=== PATIENT | male | born 1985 | race African-American/Black ===

== ENCOUNTER 2018-11-09 13:07 | Emergency (ER) | payer SELFPAY ==
[~2018-11-09] VITALS: Ht 165.1 cm; Wt 72.6 kg
[2018-11-09] MEDS ORDERED: UNOBMED (13:09)
[2018-11-09] MEDS ORDERED: Thiamine HCl 100 MG in D5W 55 ML IV ONE (13:15)
[2018-11-09] MEDS ORDERED: LR 1000ml 1,000 ML IV SCH ×2 (13:15)
--- NOTE | 2018-11-09 13:16 | Emergency Room Report ---
History of Present Illness General Chief Complaint: Alcohol Intoxication Source: Patient, EMS Present Illness HPI 33-year-old male was found stumbling outside his rehab, patient states he drank multiple shots of alcohol, he is never had any withdrawal seizures, patient is currently intoxicated, worsened by drinking alcohol alleviated by not drinking alcohol, severity is moderate, symptoms are constant, symptoms started prior to arrival patient was brought in via EMS for evaluation Allergies: Coded Allergies: No Known Allergies (Unverified , 10/26/13) Patient History Past Medical History: see triage record Social History: Reports: alcohol use Reviewed Nursing Documentation: PMH: Agreed; PSxH: Agreed Nursing Documentation-PMH Past Medical History: No Stated History Review of Systems All Other Systems: negative except mentioned in HPI Physical Exam Vital Signs Date Time Temp Pulse Resp B/P (MAP) Pulse Ox O2 Delivery O2 Flow Rate FiO2 11/09/18 13:03 97.9 88 16 132/90 (104) 98 Room Air Sp02 EP Interpretation: reviewed, normal General Appearance: well appearing, no apparent distress, alert Head: normocephalic, atraumatic Eyes: bilateral eye PERRL, bilateral eye EOMI ENT: uvula midline, moist mucus membranes Neck: supple, thyroid normal, supple/symm/no masses Respiratory: lungs clear, no respiratory distress, no retraction, no accessory muscle use Cardiovascular #1: normal peripheral pulses, regular rate, rhythm, no edema, no gallop, no murmur Gastrointestinal: non tender, soft, no guarding, no rebound Musculoskeletal: normal inspection Neurologic: alert, oriented x3 Psychiatric: mood/affect normal Skin: no rash, warm/dry Medical Decision Making Diagnostic Impression: Primary Impression: Acute alcoholic intoxication Qualified Codes: F10.920 - Alcohol use, unspecified with intoxication, uncomplicated ER Course 33-year-old male presents with acute alcohol intoxication, will observe patient until sober, will provide IV hydration, folic acid thiamine Disposition home with return precautions Last Vital Signs Date Time Temp Pulse Resp B/P (MAP) Pulse Ox O2 Delivery O2 Flow Rate FiO2 11/09/18 13:03 97.9 88 16 132/90 (104) 98 Room Air Disposition: HOME, SELF-CARE Condition: Stable Referrals: [facility] Patient Instructions: Alcohol Intoxication, [id number] Additional Instructions: The patient was provided with discharge instructions, notified to follow-up with a primary care doctor and or specialist in the next 24-48 hours, and to return to the ED if they have worsening of their symptoms. Please note that this report is being documented using DRAGON technology. This can lead to erroneous entry secondary to incorrect interpretation by the dictating instrument. Dante Araya MD Nov 09, 2018 13:16
--- NOTE | 2018-11-09 13:40 | NUR ---
ED Nurse Note: Pt brought in by [facility] 58 picked up drug [facility] d/t ETOH. Pt was found laying down on the ground. Pt is asleep, arousable by shaking. IV on right hand started. Blood specimen collected and sent to lab. IV fluids ongoing. Will continue to monitor.
[2018-11-09 18:24] VITALS: BP 116/72
--- NOTE | 2018-11-09 18:45 | NUR ---
ER DISCHARGE NOTE: Patient is cleared to be discharged per ERMD, pt is aox4, on room air, with stable vital signs. pt was given dc instructions, pt was able to verbalize understanding, pt id band and iv site removed without complications. pt is able to ambulate with steady gait. pt took all belongings.
[2018-11-09 19:10] VITALS: BP 119/72
== END 2018-11-09 18:45 | disposition home or self-care (01) ==
LOC: EDBD 13:07 → EMR 13:30
DX: F10.920 Alcohol use, unspecified with intoxication, uncomplicated (principal)
CPT/HCPCS: 82962; 96361; 96365; 99284